=== PATIENT | female | born 1945 | race Caucasian/White ===

== ENCOUNTER 2019-03-19 13:52 | Emergency (ER) | payer MEDICARE, OTHER ==
[~2019-03-19] VITALS: Ht 162.6 cm; Wt 70.8 kg
[~2019-03-19 13:52] MED LIST: ACET325T53 PO; ALBUT2 NEB; ALLA266C2 TP; ASPI-1152 PO; ATOR40TA PO; Blood Sugar Diagnostic IN; GUAI5SYR PO; INSU100I19 SQ; INSU100V SQ; Ipratropium Bromide NEB; LEVO750T21 PO; NICO1PAT25 TD; PRED10TA PO; PRED20TA GT; PRED50TA PO
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
[2019-03-19] MEDS ORDERED: MORPHINE SULFATE INJ 4 MG/ML DISP.SYRIN ONE (14:47)
[2019-03-19] MEDS ORDERED: ONDANSETRON HCL/PF 4 MG/2 ML VIAL ONE (14:47)
[2019-03-19] MEDS ORDERED: KETOROLAC TROMETHAMINE 15 MG/ML VIAL ONE (14:47)
[2019-03-19] MEDS ORDERED: IV NS 0.9% 500 ML BAG IV ONE (15:00)
[2019-03-19] MEDS ORDERED: KETOROLAC TROMETHAMINE INJ 30 MG/ML VIAL IV ONE (15:00)
[2019-03-19] MEDS ORDERED: MORPHINE SULFATE INJ 2 MG/ML DISP.SYRIN IV ONE (15:00)
[2019-03-19] MEDS ORDERED: ONDANSETRON HCL/PF 4 MG/2 ML VIAL IVP ONE (15:00)
[2019-03-19] MEDS ORDERED: CLOP75TA15 PO (15:05)
[2019-03-19] MEDS ORDERED: CALC500T51 PO (15:05)
[2019-03-19] MEDS ORDERED: MELO-105 PO (15:05)
[2019-03-19] MEDS ORDERED: FLUT1DIS3 IH (15:05)
[2019-03-19] MEDS ORDERED: MEMA21CA2 PO (15:05)
[2019-03-19] MEDS ORDERED: QUET200T5 PO (15:05)
[2019-03-19] MEDS ORDERED: CITA20TA16 PO (15:05)
[2019-03-19] MEDS ORDERED: AMLO1CAP93 PO (15:05)
[2019-03-19] MEDS ORDERED: ASPI-605 PO (15:05)
[2019-03-19] MEDS ORDERED: EXEN2AUT SQ (15:05)
[2019-03-19] MEDS ORDERED: LINA290C PO (15:05)
[2019-03-19] MEDS ORDERED: TOLT4CAP14 PO (15:05)
[2019-03-19] MEDS ORDERED: LANS30CA62 GT (15:05)
[2019-03-19 15:06] LABS: BASOPHILS # (AUTO) 0.1 /CMM (0.0-0.2); BASOPHILS % (AUTO) 0.9 % (0.0-2.0); EOSINOPHILS % (AUTO) 1.5 % (0.0-6.0); HEMATOCRIT 40 % (33-45); HEMOGLOBIN 13.5 g/dL (11.5-14.8); LYMPHOCYTES # (AUTO) 2.6 /CMM (0.8-4.8); LYMPHOCYTES % (AUTO) 25.4 % (20.0-44.0); MEAN CORPUSCULAR HGB CONC 33 g/dl (31.0-36.0); MEAN CORPUSCULAR VOLUME 88 fL (82-100); MONOCYTES # (AUTO) 0.6 /CMM (0.1-1.30); MONOCYTES % (AUTO) 5.9 % (2.0-12.0); NEUTROPHILS # (AUTO) 6.7 /CMM (1.8-8.9); NEUTROPHILS % (AUTO) 66.3 % (43.0-81.0); PLATELET COUNT (AUTO) 268 /CMM (150-450); RED BLOOD CELL COUNT(AUTO) 4.58 MIL/uL (4.0-5.2); WHITE BLOOD COUNT (AUTO) 10.1 K/uL (4.3-11.0)
[2019-03-19 15:15] LABS: CALCIUM, SERUM 9.2 mg/dL (8.5-10.1); CARBON DIOXIDE 26 mmol/L (21-32); CHLORIDE 105 mmol/L (98-107); CREATININE 1.4 mg/dL (0.6-1.3); GLUCOSE 113 mg/dL (74-106); SODIUM SERUM 141 mmol/L (136-145); UREA NITROGEN, BLOOD 34 mg/dL (7-18)
--- NOTE | 2019-03-19 15:15 | NUR ---
IV ACCESS ESTABLISHED, MEDS GIVEN, IVF INFUSING. BLOOD DRAWN AND CHART WRITER AT BEDSIDE.
--- NOTE | 2019-03-19 15:55 | NUR ---
TOOL CARRIER AT BEDSIDE
[2019-03-19] MEDS ORDERED: ONDANSETRON 4 MG TAB.RAPDIS ONE (16:59)
[2019-03-19] MEDS ORDERED: HYDROCODONE/APAP 5/325MG 1 EACH TABLET ONE (16:59)
[2019-03-19] MEDS ORDERED: HYDROCODONE/APAP 5/325MG 1 EACH TABLET PO ONE (17:00)
[2019-03-19] MEDS ORDERED: ONDANSETRON 4 MG TAB.RAPDIS SL ONE (17:00)
--- NOTE | 2019-03-19 17:08 | NUR ---
IV removed. Catheter intact and site benign. Pressure and 4x4 applied to site. No bleeding noted. Patient discharged to home in stable condition. Written and verbal after care instructions given. Patient verbalizes understanding of instruction.
[2019-03-19 17:11] VITALS: BP 143/88
== END 2019-03-19 15:10 | disposition home or self-care (01) ==
LOC: ER 13:53
DX: M79.10 Myalgia, unspecified site (principal); M25.461 Effusion, right knee; I10 Essential (primary) hypertension; E11.9 Type 2 diabetes mellitus without complications; Z79.4 Long term (current) use of insulin; Z79.82 Long term (current) use of aspirin; Z79.899 Other long term (current) drug therapy
CPT/HCPCS: 36415; 73562; 80048; 85025; 85652; 86140; 93971; 96374; 96375; 99284; J1885; J2270; J2405; J7040; Q0162

== ENCOUNTER 2023-11-08 15:05 | Inpatient (IN) | payer MEDICARE, OTHER ==
[~2023-11-08] VITALS: Ht 162.6 cm; Wt 65.3 kg
[~2023-11-08 15:05] MED LIST changes: -ACET325T53 PO; -ALBUT2 NEB; -ALLA266C2 TP; +AMLO1CAP93 PO; -ASPI-1152 PO; +ASPI-605 PO; -ATOR40TA PO; -Blood Sugar Diagnostic IN; +CALC500T53 PO; +CITA20TA16 PO; +CLOP75TA15 PO; +EXEN2AUT SQ; +FLUT1DIS3 IH; -GUAI5SYR PO; -INSU100V SQ; -Ipratropium Bromide NEB; +LANS30CA62 GT; -LEVO750T21 PO; +LINA290C PO; +MELO-105 PO; +MEMA21CA2 PO; -NICO1PAT25 TD; -PRED10TA PO; -PRED20TA GT; -PRED50TA PO; +QUET200T5 PO; +TOLT4CAP14 PO
[2023-11-08] MEDS ORDERED: IV NS 0.9% 1,000 ML BAG IV ONE (15:30)
[2023-11-08] MEDS ORDERED: ONDANSETRON HCL/PF 4 MG/2 ML VIAL IVP ONE (15:30)
[2023-11-08] MEDS ORDERED: MORPHINE SULFATE INJ 2 MG/ML DISP.SYRIN IV ONE (15:30)
[2023-11-08] MEDS ORDERED: ONDANSETRON HCL/PF 4 MG/2 ML VIAL ONE (15:38)
[2023-11-08] MEDS ORDERED: MORPHINE SULFATE INJ 4 MG/ML DISP.SYRIN ONE (15:39)
[2023-11-08 15:50] LABS: BASOPHILS # (AUTO) 0.1 K/uL (0.0-0.2); BASOPHILS % (AUTO) 0.8 % (0.0-2.0); EOSINOPHILS # (AUTO) 0.2 K/uL (0.0-0.7); EOSINOPHILS % (AUTO) 1.9 % (0.0-6.0); HEMATOCRIT 39 % (33-45); HEMOGLOBIN 12.7 g/dL (11.5-14.8); LYMPHOCYTES # (AUTO) 1.7 K/uL (0.8-4.8); LYMPHOCYTES % (AUTO) 18.6 % (20.0-44.0); MEAN CORPUSCULAR HEMOGLOBIN 29 PG (26.0-33.0); MEAN CORPUSCULAR HGB CONC 32 g/dl (31.0-36.0); MEAN CORPUSCULAR VOLUME 89 fL (82-100); MONOCYTES # (AUTO) 0.4 K/uL (0.1-1.30); NEUTROPHILS # (AUTO) 6.6 K/uL (1.8-8.9); NEUTROPHILS % (AUTO) 73.7 % (43.0-81.0); PLATELET COUNT (AUTO) 259 K/uL (150-450); RED BLOOD CELL COUNT(AUTO) 4.39 MIL/uL (4.0-5.2); RED CELL DISTRIBUTION WIDTH 15.5 % (11.5-15.0); WHITE BLOOD COUNT (AUTO) 8.9 K/uL (4.3-11.0)
[2023-11-08 16:02] LABS: CALCIUM, SERUM 9.2 mg/dL (8.5-10.1); CARBON DIOXIDE 26 mmol/L (21-32); CHLORIDE 107 mmol/L (98-107); CREATININE 1.5 mg/dL (0.6-1.3); GLUCOSE 169 mg/dL (74-106); POTASSIUM 4.6 mmol/L (3.5-5.1); SODIUM SERUM 139 mmol/L (136-145); UREA NITROGEN, BLOOD 28 mg/dL (7-18)
[2023-11-08 16:03] LABS: INR 1.02 (0.91-1.10); PARTIAL THROMBOPLASTIN TIME 25.6 SEC (24.3-34.3); PROTHROMBIN TIME 10.8 SECS (9.2-11.1)
[2023-11-08] MEDS ORDERED: ERGO500093 PO (16:17)
[2023-11-08] MEDS ORDERED: EVOL140P3 SQ (16:17)
[2023-11-08] MEDS ORDERED: PREG-58 PO (16:17)
[2023-11-08] MEDS ORDERED: EXEN2AUT SQ (16:17)
[2023-11-08] MEDS ORDERED: LINA72CA PO (16:17)
[2023-11-08] MEDS ORDERED: TOLT4CAP14 PO (16:17)
[2023-11-08] MEDS ORDERED: AMLO-62 PO (16:17)
[2023-11-08] MEDS ORDERED: CLOP75TA15 PO (16:17)
[2023-11-08] MEDS ORDERED: CALC500T52 PO (16:17)
[2023-11-08] MEDS ORDERED: ASPI-605 PO (16:17)
[2023-11-08] MEDS ORDERED: HYDR100T27 PO (16:17)
[2023-11-08] MEDS ORDERED: MEMA21CA2 PO (16:17)
[2023-11-08] MEDS ORDERED: FAMO40TA7 PO (16:17)
[2023-11-08] MEDS ORDERED: TRAM50TA2 PO (16:17)
[2023-11-08] MEDS ORDERED: METO-357 PO (16:17)
[2023-11-08] MEDS ORDERED: OMEP40CA21 PO (16:17)
[2023-11-08] MEDS ORDERED: HYDR25TA4 PO (16:17)
[2023-11-08] MEDS ORDERED: FLUT1BLS6 INH (16:17)
[2023-11-08] MEDS ORDERED: CITA20TA16 PO (16:17)
[2023-11-08] MEDS ORDERED: MAGN400T26 PO (16:17)
[2023-11-08] MEDS ORDERED: HYDROMORPHONE 1 MG/1 ML DISP.SYRIN IV ONE (16:30)
[2023-11-08] MEDS ORDERED: HYDROMORPHONE 1 MG/1 ML DISP.SYRIN ONE (16:36)
[2023-11-08] MEDS ORDERED: ONDANSETRON HCL/PF 4 MG/2 ML VIAL IVP PRN (18:30)
[2023-11-08] MEDS ORDERED: Z GUARD REMEDY 4 OZ OINT TP PRN (18:30)
[2023-11-08] MEDS ORDERED: ACETAMINOPHEN 325 MG TABLET PO PRN (18:30)
[2023-11-08] MEDS ORDERED: DEXTROSE 50%-WATER 50 ML DISP.SYRIN IV PRN (18:30)
[2023-11-08] MEDS ORDERED: ERGOCALCIFEROL (VITAMIN D 2) 50,000 UNIT CAPSULE PO SCH (19:00)
[2023-11-08 21:00] VITALS: BP 116/81; TEMP 98.4; O2SAT 96
[2023-11-08 21:15] VITALS: BP 116/81; TEMP 98.4; O2SAT 96
[2023-11-08] MEDS: BLOOD SUGAR DIAGNOSTIC 1 EACH STRIP IN SCH (22:00)
[2023-11-08] MEDS: INSULIN REGULAR, HUMAN 100 UNIT/ML 3 ML VIAL SQ PRN (22:01)
[2023-11-08] MEDS: NICOTINE PATCH (21MG) 21 MG PATCH.TD24 TD SCH (22:31)
[2023-11-08] MEDS: MORPHINE SULFATE INJ 2 MG/ML DISP.SYRIN IV PRN (22:31)
[2023-11-09] MEDS: MORPHINE SULFATE INJ 2 MG/ML DISP.SYRIN IV PRN ×4 (04:32→21:52)
[2023-11-09] MEDS: BLOOD SUGAR DIAGNOSTIC 1 EACH STRIP IN SCH ×4 (06:33→22:27)
[2023-11-09] MEDS: INSULIN REGULAR, HUMAN 100 UNIT/ML 3 ML VIAL SQ PRN (06:34)
[2023-11-09 07:09] LABS: BASOPHILS # (AUTO) 0.1 K/uL (0.0-0.2); BASOPHILS % (AUTO) 0.6 % (0.0-2.0); EOSINOPHILS # (AUTO) 0.1 K/uL (0.0-0.7); EOSINOPHILS % (AUTO) 1.7 % (0.0-6.0); HEMATOCRIT 32 % (33-45); HEMOGLOBIN 10.7 g/dL (11.5-14.8); LYMPHOCYTES # (AUTO) 2.1 K/uL (0.8-4.8); LYMPHOCYTES % (AUTO) 24.4 % (20.0-44.0); MEAN CORPUSCULAR HEMOGLOBIN 29 PG (26.0-33.0); MEAN CORPUSCULAR HGB CONC 33 g/dl (31.0-36.0); MEAN CORPUSCULAR VOLUME 89 fL (82-100); MONOCYTES # (AUTO) 0.7 K/uL (0.1-1.30); MONOCYTES % (AUTO) 8.7 % (2.0-12.0); NEUTROPHILS # (AUTO) 5.4 K/uL (1.8-8.9); NEUTROPHILS % (AUTO) 64.6 % (43.0-81.0); PLATELET COUNT (AUTO) 202 K/uL (150-450); RED BLOOD CELL COUNT(AUTO) 3.64 MIL/uL (4.0-5.2); RED CELL DISTRIBUTION WIDTH 15.1 % (11.5-15.0); WHITE BLOOD COUNT (AUTO) 8.4 K/uL (4.3-11.0)
[2023-11-09 07:39] LABS: CALCIUM, SERUM 8.6 mg/dL (8.5-10.1); CARBON DIOXIDE 23 mmol/L (21-32); CHLORIDE 109 mmol/L (98-107); CREATININE 1.4 mg/dL (0.6-1.3); GLUCOSE 117 mg/dL (74-106); MAGNESIUM 1.7 mg/dL (1.8-2.4); POTASSIUM 4.3 mmol/L (3.5-5.1); SODIUM SERUM 141 mmol/L (136-145); UREA NITROGEN, BLOOD 24 mg/dL (7-18)
[2023-11-09 07:46] LABS: CHOLESTEROL 105 mg/dL (<200); HDL CHOLESTEROL 41 mg/dL (40-60); LDL 40 mg/dL (0-99); TRIGLYCERIDES 198 mg/dL (30-150)
[2023-11-09 08:33] VITALS: BP 125/53; TEMP 99.1; O2SAT 96
[2023-11-09] MEDS: METOPROLOL SUCCINATE 50 MG TAB.SR.24H PO SCH (09:00)
[2023-11-09] MEDS: PREGABALIN 25 MG CAPSULE PO SCH ×2 (09:56→17:21)
[2023-11-09] MEDS: NICOTINE PATCH (21MG) 21 MG PATCH.TD24 TD SCH (09:57)
[2023-11-09] MEDS: PANTOPRAZOLE 40 MG TABLET.DR PO SCH (09:57)
[2023-11-09] MEDS: CITALOPRAM HYDROBROMIDE 20 MG TABLET PO SCH (09:57)
[2023-11-09] MEDS: IV NS 0.9% 1,000 ML IV SCH ×2 (09:59→18:22)
[2023-11-09 10:00] LABS: THYROID STIMULATING HORMONE 1.487 uIU/mL (0.358-3.74)
[2023-11-09] MEDS ORDERED: MAGNESIUM OXIDE 400 MG TABLET PO ONE (11:00)
[2023-11-09 16:12] VITALS: BP 121/54; TEMP 99.1; O2SAT 89
[2023-11-09] MEDS: MEMANTINE HCL 5 MG TABLET PO SCH (17:21)
[2023-11-09 20:00] VITALS: BP 146/52; TEMP 98.6; O2SAT 97
[2023-11-09] MEDS: IPRATROPIUM NEB FS 0.5 MG/2.5 ML AMPUL.NEB NEB SCH (20:27)
[2023-11-09] MEDS: ALBUTEROL FS 2.5 MG/0.5 ML VIAL.NEB NEB SCH (20:27)
[2023-11-09 20:28] VITALS: O2SAT 86
[2023-11-09] MEDS: BUDESONIDE RESPULE INH 0.5 MG/2 ML AMPUL.NEB IH SCH (20:28)
[2023-11-09 20:43] VITALS: O2SAT 97
[2023-11-10] VITALS (11 sets, daily range): BP systolic 125–142; BP diastolic 56–61; TEMP 97.9–99; O2SAT 94–99
[2023-11-10] MEDS: IPRATROPIUM NEB FS 0.5 MG/2.5 ML AMPUL.NEB NEB SCH ×4 (02:09→20:19)
[2023-11-10] MEDS: ALBUTEROL FS 2.5 MG/0.5 ML VIAL.NEB NEB SCH ×4 (02:09→20:19)
[2023-11-10] MEDS: MORPHINE SULFATE INJ 2 MG/ML DISP.SYRIN IV PRN ×3 (04:30→19:48)
[2023-11-10 06:51] LABS: HEMOGLOBIN 9.9 g/dL (11.5-14.8); MEAN CORPUSCULAR HEMOGLOBIN 29 PG (26.0-33.0)
[2023-11-10] MEDS: BLOOD SUGAR DIAGNOSTIC 1 EACH STRIP IN SCH ×4 (06:53→22:16)
[2023-11-10 07:01] LABS: BASOPHILS % (AUTO) 0.4 % (0.0-2.0); EOSINOPHILS # (AUTO) 0.1 K/uL (0.0-0.7); EOSINOPHILS % (AUTO) 1.5 % (0.0-6.0); HEMATOCRIT 30 % (33-45); LYMPHOCYTES # (AUTO) 1.6 K/uL (0.8-4.8); LYMPHOCYTES % (AUTO) 16.3 % (20.0-44.0); MEAN CORPUSCULAR HGB CONC 33 g/dl (31.0-36.0); MEAN CORPUSCULAR VOLUME 89 fL (82-100); MONOCYTES # (AUTO) 0.9 K/uL (0.1-1.30); MONOCYTES % (AUTO) 8.8 % (2.0-12.0); PLATELET COUNT (AUTO) 163 K/uL (150-450); RED BLOOD CELL COUNT(AUTO) 3.37 MIL/uL (4.0-5.2); WHITE BLOOD COUNT (AUTO) 9.7 K/uL (4.3-11.0)
[2023-11-10 07:05] LABS: ALANINE AMINOTRANSFERASE 39 U/L (12-78); ALBUMIN 2.7 g/dL (3.4-5.0); ALKALINE PHOSPHATASE 96 U/L (46-116); ASPARTATE AMINOTRANSFERASE 16 U/L (15-37); BILIRUBIN,TOTAL 0.2 mg/dL (0.2-1.0); CALCIUM, SERUM 8.3 mg/dL (8.5-10.1); CARBON DIOXIDE 24 mmol/L (21-32); CHLORIDE 108 mmol/L (98-107); CREATININE 1.4 mg/dL (0.6-1.3); GLUCOSE 147 mg/dL (74-106); MAGNESIUM 1.7 mg/dL (1.8-2.4); PHOSPHORUS 4.4 mg/dL (2.5-4.9); POTASSIUM 4.2 mmol/L (3.5-5.1); SODIUM SERUM 139 mmol/L (136-145); TOTAL PROTEIN, SERUM 6.2 g/dL (6.4-8.2); UREA NITROGEN, BLOOD 20 mg/dL (7-18)
[2023-11-10 07:07] LABS: CREATINE KINASE, TOTAL 39 U/L (26-192)
[2023-11-10] MEDS: PANTOPRAZOLE 40 MG TABLET.DR PO SCH (07:30)
[2023-11-10] MEDS: BUDESONIDE RESPULE INH 0.5 MG/2 ML AMPUL.NEB IH SCH ×2 (07:44→20:19)
[2023-11-10] MEDS: METOPROLOL SUCCINATE 50 MG TAB.SR.24H PO SCH (09:00)
[2023-11-10] MEDS: CITALOPRAM HYDROBROMIDE 20 MG TABLET PO SCH (09:00)
[2023-11-10] MEDS: PREGABALIN 25 MG CAPSULE PO SCH ×2 (09:00→16:14)
[2023-11-10] MEDS: MEMANTINE HCL 5 MG TABLET PO SCH ×2 (09:00→16:14)
[2023-11-10] MEDS: NICOTINE PATCH (21MG) 21 MG PATCH.TD24 TD SCH (09:42)
[2023-11-10] MEDS ORDERED: Magnesium 1GM/D5W 100ML PREMIX 100 ML IV SCH (10:00)
[2023-11-10] MEDS ORDERED: POLYMYXIN B SULFATE 500,000 UNITS ONE ×2 (10:27→10:28)
[2023-11-10] MEDS ORDERED: BUPIVACAINE 0.25% 75 MG/30 ML VIAL ONE (10:27)
[2023-11-10] MEDS ORDERED: ANESTHESIA TRAY IN PYXIS 1 EA TRAY MC ONE (10:27)
[2023-11-10] MEDS ORDERED: BUPIVACAINE 0.5 % PF 150 MG/30 ML VIAL ONE (10:27)
[2023-11-10] MEDS ORDERED: LABETALOL HCL IV 100MG VIAL ONE (10:51)
[2023-11-10] MEDS ORDERED: FENTANYL PF 100MCG/2ML AMPUL ONE (10:51)
[2023-11-10] MEDS ORDERED: MIDAZOLAM HCL 2 MG/2ML VIAL ONE (10:51)
[2023-11-10] MEDS ORDERED: ROCURONIUM BROMIDE 50 MG/5 ML ONE (10:52)
[2023-11-10] MEDS: IV NS 0.9% 1,000 ML IV PRN (16:14)
[2023-11-10] MEDS: INSULIN REGULAR, HUMAN 100 UNIT/ML 3 ML VIAL SQ PRN ×2 (17:13→22:15)
[2023-11-10] MEDS ORDERED: ANCEF 1 GM/50 ML D5W IV SCH ×2 (21:00)
[2023-11-10] MEDS: CEFAZOLIN 2 GM in IV D5W 100 ML IV SCH (21:07)
[2023-11-11] VITALS (11 sets, daily range): BP systolic 147–161; BP diastolic 62–69; TEMP 97.8–98.7; O2SAT 95–99
[2023-11-11] MEDS: MORPHINE SULFATE INJ 2 MG/ML DISP.SYRIN IV PRN ×3 (00:08→20:23)
[2023-11-11] MEDS: ALBUTEROL FS 2.5 MG/0.5 ML VIAL.NEB NEB SCH ×4 (02:12→20:19)
[2023-11-11] MEDS: IPRATROPIUM NEB FS 0.5 MG/2.5 ML AMPUL.NEB NEB SCH ×4 (02:12→20:19)
[2023-11-11] MEDS: IV NS 0.9% 1,000 ML IV PRN ×2 (03:19→14:37)
[2023-11-11] MEDS: CEFAZOLIN 2 GM in IV D5W 100 ML IV SCH (05:18)
[2023-11-11] MEDS: BLOOD SUGAR DIAGNOSTIC 1 EACH STRIP IN SCH ×4 (06:33→20:47)
[2023-11-11] MEDS: INSULIN REGULAR, HUMAN 100 UNIT/ML 3 ML VIAL SQ PRN (06:34)
[2023-11-11 07:21] LABS: PTH, INTACT 37 pg/mL (15-65)
[2023-11-11 07:26] LABS: BASOPHILS % (AUTO) 0.3 % (0.0-2.0); HEMATOCRIT 26 % (33-45); HEMOGLOBIN 8.7 g/dL (11.5-14.8); LYMPHOCYTES # (AUTO) 1.6 K/uL (0.8-4.8); LYMPHOCYTES % (AUTO) 14.3 % (20.0-44.0); MEAN CORPUSCULAR HEMOGLOBIN 30 PG (26.0-33.0); MEAN CORPUSCULAR HGB CONC 33 g/dl (31.0-36.0); MEAN CORPUSCULAR VOLUME 89 fL (82-100); MONOCYTES # (AUTO) 1.1 K/uL (0.1-1.30); MONOCYTES % (AUTO) 9.8 % (2.0-12.0); NEUTROPHILS # (AUTO) 8.3 K/uL (1.8-8.9); NEUTROPHILS % (AUTO) 75.6 % (43.0-81.0); PLATELET COUNT (AUTO) 154 K/uL (150-450); RED BLOOD CELL COUNT(AUTO) 2.95 MIL/uL (4.0-5.2); RED CELL DISTRIBUTION WIDTH 14.5 % (11.5-15.0)
[2023-11-11] MEDS: BUDESONIDE RESPULE INH 0.5 MG/2 ML AMPUL.NEB IH SCH ×2 (07:33→20:19)
[2023-11-11 07:58] LABS: ALBUMIN 2.4 g/dL (3.4-5.0); BILIRUBIN,TOTAL 0.1 mg/dL (0.2-1.0); CALCIUM, SERUM 8.4 mg/dL (8.5-10.1); CREATININE 1.2 mg/dL (0.6-1.3); PHOSPHORUS 3.7 mg/dL (2.5-4.9); TOTAL PROTEIN, SERUM 5.9 g/dL (6.4-8.2)
[2023-11-11] MEDS: METOPROLOL SUCCINATE 50 MG TAB.SR.24H PO SCH (08:31)
[2023-11-11] MEDS: NICOTINE PATCH (21MG) 21 MG PATCH.TD24 TD SCH (08:31)
[2023-11-11] MEDS: CITALOPRAM HYDROBROMIDE 20 MG TABLET PO SCH (08:31)
[2023-11-11] MEDS: PREGABALIN 25 MG CAPSULE PO SCH ×2 (08:31→16:52)
[2023-11-11] MEDS: PANTOPRAZOLE 40 MG TABLET.DR PO SCH (08:31)
[2023-11-11] MEDS: MEMANTINE HCL 5 MG TABLET PO SCH ×2 (08:31→16:52)
[2023-11-11] MEDS: SOD FERRIC GLUC 125 MG in IV NS 0.9% 100 ML IV SCH (14:37)
[2023-11-12] VITALS (11 sets, daily range): BP systolic 140–149; BP diastolic 54–66; TEMP 98.7–99.1; O2SAT 90–99
[2023-11-12] MEDS: IV NS 0.9% 1,000 ML IV PRN ×2 (01:45→20:27)
[2023-11-12] MEDS: IPRATROPIUM NEB FS 0.5 MG/2.5 ML AMPUL.NEB NEB SCH ×4 (01:55→20:06)
[2023-11-12] MEDS: ALBUTEROL FS 2.5 MG/0.5 ML VIAL.NEB NEB SCH ×4 (01:55→20:06)
[2023-11-12] MEDS: INSULIN REGULAR, HUMAN 100 UNIT/ML 3 ML VIAL SQ PRN ×3 (06:33→22:42)
[2023-11-12] MEDS: BLOOD SUGAR DIAGNOSTIC 1 EACH STRIP IN SCH ×4 (06:33→22:42)
[2023-11-12 07:25] LABS: BASOPHILS # (AUTO) 0.1 K/uL (0.0-0.2); BASOPHILS % (AUTO) 0.6 % (0.0-2.0); EOSINOPHILS # (AUTO) 0.1 K/uL (0.0-0.7); EOSINOPHILS % (AUTO) 1.3 % (0.0-6.0); HEMATOCRIT 28 % (33-45); HEMOGLOBIN 9.2 g/dL (11.5-14.8); LYMPHOCYTES # (AUTO) 1.5 K/uL (0.8-4.8); LYMPHOCYTES % (AUTO) 13.1 % (20.0-44.0); MEAN CORPUSCULAR HEMOGLOBIN 30 PG (26.0-33.0); MEAN CORPUSCULAR HGB CONC 33 g/dl (31.0-36.0); MEAN CORPUSCULAR VOLUME 89 fL (82-100); MONOCYTES # (AUTO) 1.1 K/uL (0.1-1.30); MONOCYTES % (AUTO) 9.5 % (2.0-12.0); NEUTROPHILS # (AUTO) 8.5 K/uL (1.8-8.9); NEUTROPHILS % (AUTO) 75.5 % (43.0-81.0); PLATELET COUNT (AUTO) 164 K/uL (150-450); RED CELL DISTRIBUTION WIDTH 14.7 % (11.5-15.0); WHITE BLOOD COUNT (AUTO) 11.2 K/uL (4.3-11.0)
[2023-11-12] MEDS: BUDESONIDE RESPULE INH 0.5 MG/2 ML AMPUL.NEB IH SCH ×2 (07:42→20:07)
[2023-11-12 08:03] LABS: CALCIUM, SERUM 8.6 mg/dL (8.5-10.1); CREATININE 1.1 mg/dL (0.6-1.3); MAGNESIUM 1.7 mg/dL (1.8-2.4); PHOSPHORUS 3.1 mg/dL (2.5-4.9); POTASSIUM 3.8 mmol/L (3.5-5.1)
[2023-11-12] MEDS: METOPROLOL SUCCINATE 50 MG TAB.SR.24H PO SCH (10:00)
[2023-11-12] MEDS: PANTOPRAZOLE 40 MG TABLET.DR PO SCH (10:00)
[2023-11-12] MEDS: PREGABALIN 25 MG CAPSULE PO SCH ×2 (10:00→16:21)
[2023-11-12] MEDS ORDERED: MAGNESIUM OXIDE 400 MG TABLET PO ONE (10:00)
[2023-11-12] MEDS: NICOTINE PATCH (21MG) 21 MG PATCH.TD24 TD SCH (10:01)
[2023-11-12] MEDS: CITALOPRAM HYDROBROMIDE 20 MG TABLET PO SCH (10:01)
[2023-11-12] MEDS: MEMANTINE HCL 5 MG TABLET PO SCH ×2 (10:01→16:21)
[2023-11-12] MEDS: ENOXAPARIN SODIUM 30 MG/0.3 ML DISP.SYRIN SQ SCH (10:14)
[2023-11-12] MEDS: SOD FERRIC GLUC 125 MG in IV NS 0.9% 100 ML IV SCH (13:46)
[2023-11-13] VITALS (8 sets, daily range): BP systolic 160; BP diastolic 61; TEMP 98.2; O2SAT 93–99
[2023-11-13] MEDS: ALBUTEROL FS 2.5 MG/0.5 ML VIAL.NEB NEB SCH ×3 (02:08→12:46)
[2023-11-13] MEDS: IPRATROPIUM NEB FS 0.5 MG/2.5 ML AMPUL.NEB NEB SCH ×3 (02:08→12:46)
[2023-11-13] MEDS: IV NS 0.9% 1,000 ML IV PRN (06:07)
[2023-11-13] MEDS: PANTOPRAZOLE 40 MG TABLET.DR PO SCH (07:17)
[2023-11-13] MEDS: BLOOD SUGAR DIAGNOSTIC 1 EACH STRIP IN SCH ×2 (07:17→11:09)
[2023-11-13] MEDS: BUDESONIDE RESPULE INH 0.5 MG/2 ML AMPUL.NEB IH SCH (07:32)
[2023-11-13 07:44] LABS: CALCIUM, SERUM 8.6 mg/dL (8.5-10.1); CHLORIDE 103 mmol/L (98-107); CREATININE 1.1 mg/dL (0.6-1.3); GLUCOSE 131 mg/dL (74-106); MAGNESIUM 1.7 mg/dL (1.8-2.4); POTASSIUM 3.5 mmol/L (3.5-5.1); SODIUM SERUM 139 mmol/L (136-145); UREA NITROGEN, BLOOD 18 mg/dL (7-18)
[2023-11-13 08:03] LABS: CARBON DIOXIDE 25 mmol/L (21-32)
[2023-11-13] MEDS: NICOTINE PATCH (21MG) 21 MG PATCH.TD24 TD SCH (08:11)
[2023-11-13] MEDS: PREGABALIN 25 MG CAPSULE PO SCH (08:12)
[2023-11-13] MEDS: CITALOPRAM HYDROBROMIDE 20 MG TABLET PO SCH (08:12)
[2023-11-13] MEDS: METOPROLOL SUCCINATE 50 MG TAB.SR.24H PO SCH (08:12)
[2023-11-13] MEDS: MEMANTINE HCL 5 MG TABLET PO SCH (08:12)
[2023-11-13 09:08] LABS: *SPE A/G RATIO 0.9 (0.7-1.7); *SPE ALBUMIN 2.6 g/dL (2.9-4.4); *SPE ALPHA-1-GLOBULIN 0.3 g/dL (0.0-0.4); *SPE ALPHA-2-GLOBULIN 0.9 g/dL (0.4-1.0); *SPE BETA GLOBULIN 0.8 g/dL (0.7-1.3); *SPE GLOBULIN, TOTAL 2.8 g/dL (2.2-3.9); *SPE M-SPIKE Not Observed g/dL (Not Observed); *SPE PROTEIN TOTAL 5.4 g/dL (6.0-8.5); *SPEGAMMA GLOBULIN 0.8 g/dL (0.4-1.8)
[2023-11-13] MEDS: ENOXAPARIN SODIUM 30 MG/0.3 ML DISP.SYRIN SQ SCH (09:12)
[2023-11-13] MEDS: Magnesium 1GM/D5W 100ML PREMIX 100 ML IV SCH ×2 (09:31→10:35)
[2023-11-13] MEDS ORDERED: MAGNESIUM OXIDE 400 MG TABLET PO ONE (10:00)
[2023-11-13] MEDS: INSULIN REGULAR, HUMAN 100 UNIT/ML 3 ML VIAL SQ PRN (11:18)
[2023-11-13] MEDS: SOD FERRIC GLUC 125 MG in IV NS 0.9% 100 ML IV SCH (14:00)
== END 2023-11-13 16:45 | DRG 481 ==
LOC: ER 15:44 → MED 20:35
PROVIDERS: ADMIT Nurse Practitioner Family; ATTEND Nurse Practitioner Family
PROC: 0QS706Z Reposition Left Upper Femur with Intramedullary Internal Fixation Device, Open Approach (ICD-10-PCS; principal; 2023-11-10)
DX: S72.142A Displaced intertrochanteric fracture of left femur, initial encounter for closed fracture (principal); N17.9 Acute kidney failure, unspecified; I25.10 Atherosclerotic heart disease of native coronary artery without angina pectoris; D64.9 Anemia, unspecified; E78.5 Hyperlipidemia, unspecified; E83.42 Hypomagnesemia; Z88.0 Allergy status to penicillin; E11.22 Type 2 diabetes mellitus with diabetic chronic kidney disease; Z95.5 Presence of coronary angioplasty implant and graft; K21.9 Gastro-esophageal reflux disease without esophagitis; I12.9 Hypertensive chronic kidney disease with stage 1 through stage 4 chronic kidney disease, or unspecified chronic kidney disease; N18.9 Chronic kidney disease, unspecified; M89.8X9 Other specified disorders of bone, unspecified site; W01.0XXA Fall on same level from slipping, tripping and stumbling without subsequent striking against object, initial encounter; Y93.9 Activity, unspecified; Y92.009 Unspecified place in unspecified non-institutional (private) residence as the place of occurrence of the external cause; F17.210 Nicotine dependence, cigarettes, uncomplicated; Z71.6 Tobacco abuse counseling; F32.A Depression, unspecified; Z79.82 Long term (current) use of aspirin
CPT/HCPCS: 36415; 71045-TC; 73502; 76770-TC; 80048-TC; 80053-TC; 80061-TC; 82550-TC; 82728-TC; 82962-TC; 83540-TC; 83735-TC; 83970; 84100-TC; 84155; 84165; 84439-TC; 84443-TC; 85025-TC; 85730-TC; 86850-TC; 93307-TC; 94799-TC; 97110-TC; 97112-TC; 97530-TC; A4223; A6209; C1713; G0378; J0330; J0690; J1100; J1170; J1650; J1815; J2250; J2270; J2405; J2704; J2916; J3010; J3475; J3490; J7030; J7060

== ENCOUNTER 2024-01-04 12:15 | Inpatient (IN) | payer MEDICARE, OTHER ==
[~2024-01-04] VITALS: Ht 162.6 cm; Wt 60.8 kg
[~2024-01-04 12:15] MED LIST changes: +AMLO-62 PO; -AMLO1CAP93 PO; +CALC500T52 PO; -CALC500T53 PO; +ERGO500093 PO; +EVOL140P3 SQ; +FAMO40TA7 PO; +FLUT1BLS6 INH; -FLUT1DIS3 IH; +HYDR100T27 PO; +HYDR25TA4 PO; -INSU100I19 SQ; -LANS30CA62 GT; -LINA290C PO; +LINA72CA PO; +MAGN400T26 PO; -MELO-105 PO; +METO-357 PO; +OMEP40CA21 PO; +PREG-58 PO; -QUET200T5 PO; +TRAM50TA2 PO
[2024-01-04] MEDS ORDERED: methylPREDNISolone SOD SUCC 125 MG/2ML VIAL ONE (13:01)
[2024-01-04 13:02] LABS: BASOPHILS # (AUTO) 0.1 K/uL (0.0-0.2); BASOPHILS % (AUTO) 0.8 % (0.0-2.0); EOSINOPHILS # (AUTO) 0.1 K/uL (0.0-0.7); EOSINOPHILS % (AUTO) 1.2 % (0.0-6.0); HEMATOCRIT 33 % (33-45); HEMOGLOBIN 10.7 g/dL (11.5-14.8); LYMPHOCYTES # (AUTO) 1.6 K/uL (0.8-4.8); LYMPHOCYTES % (AUTO) 19.6 % (20.0-44.0); MEAN CORPUSCULAR HEMOGLOBIN 30 PG (26.0-33.0); MEAN CORPUSCULAR HGB CONC 32 g/dl (31.0-36.0); MEAN CORPUSCULAR VOLUME 92 fL (82-100); MONOCYTES # (AUTO) 0.6 K/uL (0.1-1.30); MONOCYTES % (AUTO) 8.1 % (2.0-12.0); NEUTROPHILS # (AUTO) 5.6 K/uL (1.8-8.9); NEUTROPHILS % (AUTO) 70.3 % (43.0-81.0); PLATELET COUNT (AUTO) 224 K/uL (150-450); RED BLOOD CELL COUNT(AUTO) 3.62 MIL/uL (4.0-5.2); RED CELL DISTRIBUTION WIDTH 16.3 % (11.5-15.0)
[2024-01-04] MEDS: methylPREDNISolone SOD SUCC 125 MG/2ML VIAL IV ONE (13:02)
[2024-01-04 13:09] LABS: CALCIUM, SERUM 8.7 mg/dL (8.5-10.1); CARBON DIOXIDE 24 mmol/L (21-32); CHLORIDE 107 mmol/L (98-107); CREATININE 1.3 mg/dL (0.6-1.3); GLUCOSE 143 mg/dL (74-106); POTASSIUM 3.9 mmol/L (3.5-5.1); SODIUM SERUM 140 mmol/L (136-145); UREA NITROGEN, BLOOD 17 mg/dL (7-18)
[2024-01-04] MEDS ORDERED: IPRATROPIUM NEB FS 0.5 MG/2.5 ML AMPUL.NEB ONE (13:19)
[2024-01-04] MEDS ORDERED: ALBUTEROL FS 2.5 MG/3 ML VIAL.NEB ONE (13:19)
[2024-01-04 13:22] LABS: NT-PRO BNP 6513 pg/mL (0-125)
[2024-01-04 13:25] VITALS: O2SAT 93
[2024-01-04] MEDS: ALBUTEROL FS 2.5 MG/3 ML VIAL.NEB CONTNEB ONE (13:25)
[2024-01-04] MEDS: IPRATROPIUM NEB FS 0.5 MG/2.5 ML AMPUL.NEB NEB ONE (13:25)
[2024-01-04] MEDS ORDERED: Z GUARD REMEDY 4 OZ OINT TP PRN (14:30)
[2024-01-04] MEDS ORDERED: IPRATROPIUM NEB FS 0.5 MG/2.5 ML AMPUL.NEB NEB PRN (14:30)
[2024-01-04] MEDS ORDERED: ONDANSETRON HCL/PF 4 MG/2 ML VIAL IVP PRN (14:30)
[2024-01-04] MEDS ORDERED: MAGNESIUM HYDROXIDE 30 ML UDC PO PRN (14:30)
[2024-01-04] MEDS ORDERED: TRAMADOL HCL 50 MG TABLET PO PRN (14:30)
[2024-01-04] MEDS: LEVOFLOXACIN 750 MG /D5W 150ML 150 ML IV ONE (14:33)
[2024-01-04] MEDS ORDERED: ALLO300T2 PO (14:39)
[2024-01-04] MEDS ORDERED: INSU100V10 SQ (14:39)
[2024-01-04] MEDS ORDERED: QUET200T84 PO (14:39)
[2024-01-04] MEDS ORDERED: SITA100T PO (14:39)
[2024-01-04] MEDS ORDERED: LANS30CA56 PO (14:39)
[2024-01-04] MEDS ORDERED: CLON0.1T PO (14:39)
[2024-01-04] MEDS ORDERED: ALBU18HF2 IH (14:39)
[2024-01-04] MEDS ORDERED: HYDR-4077 PO (14:39)
[2024-01-04] MEDS ORDERED: ACET-73 PO (14:39)
[2024-01-04] MEDS: FUROSEMIDE 20 MG/2 ML VIAL IV ONE (15:00)
[2024-01-04] MEDS ORDERED: DEXTROSE 50%-WATER 50 ML DISP.SYRIN IV PRN (15:00)
[2024-01-04 15:19] VITALS: O2SAT 99
[2024-01-04] MEDS ORDERED: PREGABALIN 25 MG CAPSULE PO SCH (17:00)
[2024-01-04] MEDS ORDERED: MAGNESIUM OXIDE 400 MG TABLET PO SCH (17:00)
[2024-01-04] MEDS ORDERED: FUROSEMIDE 40 MG/4 ML VIAL ONE (17:13)
[2024-01-04] MEDS ORDERED: POTASSIUM CHLORIDE 20 MEQ TAB.PRT.SR PO ONE (17:14)
[2024-01-04] MEDS ORDERED: hydrALAZINE HCL 50 MG TABLET ONE (17:14)
[2024-01-04] MEDS: FUROSEMIDE 40 MG/4 ML VIAL IV SCH (17:14)
[2024-01-04] MEDS: POTASSIUM CHLORIDE 20 MEQ TAB.PRT.SR PO SCH (17:15)
[2024-01-04] MEDS: hydrALAZINE HCL 50 MG TABLET PO SCH (17:20)
[2024-01-04] MEDS: CALCIUM CARBONATE (1250) 500 MG TABLET PO SCH (17:45)
[2024-01-04] MEDS: MEMANTINE HCL 5 MG TABLET PO SCH (17:45)
[2024-01-04 18:08] VITALS: BP 165/63; TEMP 98.6; O2SAT 97
[2024-01-04] MEDS: ACETAMINOPHEN 325 MG TABLET PO PRN (18:35)
[2024-01-04 19:13] LABS: ABG BASE EXCESS -2.7 mmol/L; ABG OXYGEN SATURATION 98.5 % (92.0-98.5); ABG PCO2 31.1 mmHg (35.0-45.0); ABG PO2 134.8 mmHg (75.0-100.0); ABG TOTAL HEMOGLOBIN 11.5 G/dL (12.0-16.0); COHb 0.3 % (0.5-1.5); MetHb 0.3 % (0.0-1.5); O2Hb 97.9 % (94.0-97.0); SITE, ABG Right Radial; VENT MODE, BG CONTINUES TREATMENT
[2024-01-04] MEDS ORDERED: ALBUTEROL FS 2.5 MG/0.5 ML VIAL.NEB NEB SCH (19:30)
[2024-01-04] MEDS: ENOXAPARIN SODIUM 30 MG/0.3 ML DISP.SYRIN SQ SCH (19:55)
[2024-01-04 20:00] VITALS: BP 153/55; TEMP 97.8; O2SAT 96
[2024-01-04] MEDS: methylPREDNISolone SOD SUCC 40 MG/ML VIAL IV SCH (20:23)
[2024-01-04 20:27] VITALS: O2SAT 94
[2024-01-04] MEDS: IPRATROPIUM NEB FS 0.5 MG/2.5 ML AMPUL.NEB NEB SCH (20:27)
[2024-01-04] MEDS: ALBUTEROL FS 2.5 MG/3 ML VIAL.NEB NEB SCH (20:27)
[2024-01-04 20:37] VITALS: O2SAT 98; O2SAT 99
[2024-01-04] MEDS: BLOOD SUGAR DIAGNOSTIC 1 EACH STRIP IN SCH (21:20)
[2024-01-04] MEDS: INSULIN REGULAR, HUMAN 100 UNIT/ML 3 ML VIAL SQ PRN (21:23)
[2024-01-04] MEDS: ZOLPIDEM TARTRATE 5 MG TABLET PO PRN (21:24)
[2024-01-05] VITALS (14 sets, daily range): BP systolic 106–141; BP diastolic 57–74; TEMP 97.7–98.4; O2SAT 91–100
[2024-01-05] MEDS: ALBUTEROL FS 2.5 MG/3 ML VIAL.NEB NEB SCH (02:01)
[2024-01-05 07:36] LABS: HEMATOCRIT 32 % (33-45); HEMOGLOBIN 10.5 g/dL (11.5-14.8); LYMPHOCYTES # (AUTO) 0.9 K/uL (0.8-4.8); LYMPHOCYTES % (AUTO) 10.1 % (20.0-44.0); MEAN CORPUSCULAR HEMOGLOBIN 30 PG (26.0-33.0); MEAN CORPUSCULAR HGB CONC 33 g/dl (31.0-36.0); MEAN CORPUSCULAR VOLUME 90 fL (82-100); MONOCYTES # (AUTO) 0.3 K/uL (0.1-1.30); MONOCYTES % (AUTO) 2.9 % (2.0-12.0); NEUTROPHILS # (AUTO) 7.6 K/uL (1.8-8.9); PLATELET COUNT (AUTO) 234 K/uL (150-450); RED BLOOD CELL COUNT(AUTO) 3.51 MIL/uL (4.0-5.2); RED CELL DISTRIBUTION WIDTH 15.7 % (11.5-15.0); WHITE BLOOD COUNT (AUTO) 8.7 K/uL (4.3-11.0)
[2024-01-05 08:07] LABS: CALCIUM, SERUM 9.1 mg/dL (8.5-10.1); CARBON DIOXIDE 26 mmol/L (21-32); CHLORIDE 103 mmol/L (98-107); CREATININE 1.6 mg/dL (0.6-1.3); GLUCOSE 166 mg/dL (74-106); MAGNESIUM 1.8 mg/dL (1.8-2.4); PHOSPHORUS 4.4 mg/dL (2.5-4.9); POTASSIUM 4.2 mmol/L (3.5-5.1); SODIUM SERUM 140 mmol/L (136-145); UREA NITROGEN, BLOOD 22 mg/dL (7-18)
[2024-01-05] MEDS: ASPIRIN EC 81 MG TABLET.DR PO SCH (08:46)
[2024-01-05] MEDS: QUETIAPINE FUMARATE 100 MG TABLET PO SCH (08:46)
[2024-01-05] MEDS: ALLOPURINOL 100 MG TABLET PO SCH (08:46)
[2024-01-05] MEDS: CLOPIDOGREL BISULFATE 75 MG TABLET PO SCH (08:47)
[2024-01-05] MEDS: CITALOPRAM HYDROBROMIDE 20 MG TABLET PO SCH (08:47)
[2024-01-05] MEDS: PANTOPRAZOLE 40 MG TABLET.DR PO SCH (08:47)
[2024-01-05] MEDS: LINAGLIPTIN 5 MG TABLET PO SCH (08:47)
[2024-01-05] MEDS: TOLTERODINE 2 MG CAP.SR PO SCH (08:47)
[2024-01-05] MEDS: CLOTRIMAZOLE 1% 15 GM TUBE TP SCH (08:49)
[2024-01-05 08:53] LABS: CHOLESTEROL 121 mg/dL (<200); HDL CHOLESTEROL 47 mg/dL (40-60); LDL 54 mg/dL (0-99); TRIGLYCERIDES 107 mg/dL (30-150)
[2024-01-05] MEDS ORDERED: Medication Not On Formulary EA (Linaclotide (Linzess) 72 MCG) PO SCH (09:00)
[2024-01-05] MEDS ORDERED: Medication Not On Formulary EA (Lansoprazole 30 MG) PO SCH (09:00)
[2024-01-05] MEDS ORDERED: HYDROCHLOROTHIAZIDE 25 MG TABLET PO SCH (09:00)
[2024-01-05] MEDS ORDERED: hydrALAZINE HCL 50 MG TABLET PO SCH (09:00)
[2024-01-05] MEDS ORDERED: FAMOTIDINE (20 MG) 20 MG TABLET PO SCH (09:00)
[2024-01-05] MEDS: METOPROLOL TARTRATE INJ 5 MG/5 ML AMPUL IVP ONE (11:12)
[2024-01-05] MEDS: LEVOFLOXACIN 500 MG /D5W 100ML 500 MG in PREMIX 1 EA IV SCH (14:17)
[2024-01-05] MEDS: methylPREDNISolone SOD SUCC 40 MG/ML VIAL IV SCH (17:15)
[2024-01-05] MEDS ORDERED: diphenhydrAMINE HCL ELIX 25 MG/10 ML UDC PO PRN (17:30)
[2024-01-05] MEDS ORDERED: BUDESONIDE RESPULE INH 0.5 MG/2 ML AMPUL.NEB NEB SCH (19:30)
[2024-01-06] VITALS (12 sets, daily range): BP systolic 104–150; BP diastolic 44–70; TEMP 98–98.5; O2SAT 93–98
[2024-01-06 06:18] LABS: BASOPHILS % (AUTO) 0.3 % (0.0-2.0); EOSINOPHILS % (AUTO) 0.2 % (0.0-6.0); HEMATOCRIT 31 % (33-45); HEMOGLOBIN 10.5 g/dL (11.5-14.8); LYMPHOCYTES # (AUTO) 1.4 K/uL (0.8-4.8); LYMPHOCYTES % (AUTO) 14.7 % (20.0-44.0); MEAN CORPUSCULAR HEMOGLOBIN 30 PG (26.0-33.0); MEAN CORPUSCULAR HGB CONC 33 g/dl (31.0-36.0); MEAN CORPUSCULAR VOLUME 90 fL (82-100); MONOCYTES % (AUTO) 10.3 % (2.0-12.0); NEUTROPHILS # (AUTO) 6.9 K/uL (1.8-8.9); NEUTROPHILS % (AUTO) 74.5 % (43.0-81.0); PLATELET COUNT (AUTO) 221 K/uL (150-450); WHITE BLOOD COUNT (AUTO) 9.2 K/uL (4.3-11.0)
[2024-01-06 06:52] LABS: CARBON DIOXIDE 28 mmol/L (21-32); CHLORIDE 103 mmol/L (98-107); CREATININE 1.7 mg/dL (0.6-1.3); GLUCOSE 125 mg/dL (74-106); POTASSIUM 3.5 mmol/L (3.5-5.1); SODIUM SERUM 141 mmol/L (136-145); UREA NITROGEN, BLOOD 29 mg/dL (7-18)
[2024-01-06] MEDS: DOXYCYCLINE HYCLATE (100 MG) 100 MG TABLET PO SCH (08:34)
[2024-01-06] MEDS: hydrALAZINE HCL 50 MG TABLET PO SCH (08:35)
[2024-01-06] MEDS: ISOSORBIDE DINITRATE (20MG) 20 MG TABLET PO SCH (08:36)
[2024-01-07] VITALS (55 sets, daily range): BP systolic 73–181; BP diastolic 35–145; TEMP 97.9–98.6; O2SAT 93–100
[2024-01-07 07:11] LABS: BASOPHILS % (AUTO) 0.4 % (0.0-2.0); EOSINOPHILS # (AUTO) 0.1 K/uL (0.0-0.7); EOSINOPHILS % (AUTO) 0.7 % (0.0-6.0); HEMATOCRIT 34 % (33-45); HEMOGLOBIN 11.2 g/dL (11.5-14.8); LYMPHOCYTES # (AUTO) 0.9 K/uL (0.8-4.8); LYMPHOCYTES % (AUTO) 12.3 % (20.0-44.0); MEAN CORPUSCULAR HEMOGLOBIN 30 PG (26.0-33.0); MEAN CORPUSCULAR HGB CONC 33 g/dl (31.0-36.0); MEAN CORPUSCULAR VOLUME 90 fL (82-100); MONOCYTES # (AUTO) 0.8 K/uL (0.1-1.30); NEUTROPHILS # (AUTO) 5.8 K/uL (1.8-8.9); NEUTROPHILS % (AUTO) 75.6 % (43.0-81.0); PLATELET COUNT (AUTO) 229 K/uL (150-450); RED BLOOD CELL COUNT(AUTO) 3.79 MIL/uL (4.0-5.2); WHITE BLOOD COUNT (AUTO) 7.7 K/uL (4.3-11.0)
[2024-01-07 07:40] LABS: CALCIUM, SERUM 9.2 mg/dL (8.5-10.1); CARBON DIOXIDE 27 mmol/L (21-32); CHLORIDE 103 mmol/L (98-107); CREATININE 2.1 mg/dL (0.6-1.3); GLUCOSE 132 mg/dL (74-106); POTASSIUM 3.7 mmol/L (3.5-5.1); SODIUM SERUM 141 mmol/L (136-145); UREA NITROGEN, BLOOD 31 mg/dL (7-18)
[2024-01-07] MEDS: methylPREDNISolone SOD SUCC 40 MG/ML VIAL IV SCH (09:00)
[2024-01-07] MEDS: ERGOCALCIFEROL (VITAMIN D 2) 50,000 UNIT CAPSULE PO SCH (09:00)
[2024-01-07] MEDS ORDERED: IV NS 0.9% 1,000 ML BAG IV PRN (10:00)
[2024-01-07] MEDS: IV NS 0.9% 500 ML BAG IV ONE (10:50)
[2024-01-07] MEDS ORDERED: PHENYLEPHRINE 50 MG in IV NS 0.9% 245 ML IV PRN (11:00)
[2024-01-07] MEDS: CEFEPIME 1 GM in IV D5W 50 ML IV SCH (11:24)
[2024-01-07] MEDS: PHENYLEPHRINE 50 MG in IV NS 0.9% 245 ML IV PRN (12:14)
[2024-01-07] MEDS ORDERED: CEFEPIME 1 GM VIAL IM SCH (21:00)
[2024-01-07] MEDS: IV NS 0.9% 1,000 ML IV PRN (22:12)
[2024-01-08] VITALS (42 sets, daily range): BP systolic 79–188; BP diastolic 49–88; TEMP 97.8–98.6; O2SAT 93–100
[2024-01-08 04:56] LABS: BASOPHILS % (AUTO) 0.6 % (0.0-2.0); EOSINOPHILS # (AUTO) 0.1 K/uL (0.0-0.7); EOSINOPHILS % (AUTO) 1.5 % (0.0-6.0); HEMATOCRIT 33 % (33-45); HEMOGLOBIN 10.7 g/dL (11.5-14.8); LYMPHOCYTES # (AUTO) 0.8 K/uL (0.8-4.8); LYMPHOCYTES % (AUTO) 10.5 % (20.0-44.0); MEAN CORPUSCULAR HEMOGLOBIN 30 PG (26.0-33.0); MEAN CORPUSCULAR HGB CONC 33 g/dl (31.0-36.0); MEAN CORPUSCULAR VOLUME 91 fL (82-100); MONOCYTES # (AUTO) 0.6 K/uL (0.1-1.30); MONOCYTES % (AUTO) 8.5 % (2.0-12.0); NEUTROPHILS # (AUTO) 5.8 K/uL (1.8-8.9); NEUTROPHILS % (AUTO) 78.9 % (43.0-81.0); PLATELET COUNT (AUTO) 201 K/uL (150-450); RED CELL DISTRIBUTION WIDTH 15.7 % (11.5-15.0); WHITE BLOOD COUNT (AUTO) 7.4 K/uL (4.3-11.0)
[2024-01-08] MEDS: CLONIDINE HCL 0.1 MG TABLET PO PRN (05:00)
[2024-01-08 05:17] LABS: CALCIUM, SERUM 8.6 mg/dL (8.5-10.1); CARBON DIOXIDE 27 mmol/L (21-32); CHLORIDE 105 mmol/L (98-107); GLUCOSE 122 mg/dL (74-106); SODIUM SERUM 140 mmol/L (136-145); UREA NITROGEN, BLOOD 32 mg/dL (7-18)
[2024-01-08 15:46] LABS: ABG BASE EXCESS -1.3 mmol/L; ABG OXYGEN SATURATION 99.4 % (92.0-98.5); ABG PCO2 35.2 mmHg (35.0-45.0); ABG PH 7.426 (7.350-7.450); ABG PO2 473.4 mmHg (75.0-100.0); ABG TOTAL HEMOGLOBIN 10.8 G/dL (12.0-16.0); AaDO2 204.4 mmHg; COHb 0.3 % (0.5-1.5); MetHb 0.6 % (0.0-1.5); O2Hb 98.5 % (94.0-97.0); SITE, ABG Right Radial; VENT MODE, BG NON REBREATHER
[2024-01-08] MEDS: DOXYCYCLINE HYCLATE (100 MG) 100 MG TABLET PO SCH (21:31)
[2024-01-09] VITALS (27 sets, daily range): BP systolic 127–177; BP diastolic 57–84; TEMP 97.2–99; O2SAT 92–100
[2024-01-09] MEDS: BENZONATATE 100 MG CAPSULE PO PRN (00:08)
[2024-01-09] MEDS: BENZONATATE 100 MG CAPSULE PO ONE (00:17)
[2024-01-09 04:10] LABS: BASOPHILS % (AUTO) 0.4 % (0.0-2.0); EOSINOPHILS % (AUTO) 0.6 % (0.0-6.0); HEMATOCRIT 31 % (33-45); HEMOGLOBIN 10.1 g/dL (11.5-14.8); LYMPHOCYTES # (AUTO) 1.1 K/uL (0.8-4.8); LYMPHOCYTES % (AUTO) 13.8 % (20.0-44.0); MEAN CORPUSCULAR HEMOGLOBIN 30 PG (26.0-33.0); MEAN CORPUSCULAR HGB CONC 33 g/dl (31.0-36.0); MEAN CORPUSCULAR VOLUME 91 fL (82-100); MONOCYTES # (AUTO) 0.7 K/uL (0.1-1.30); MONOCYTES % (AUTO) 8.5 % (2.0-12.0); NEUTROPHILS # (AUTO) 6.3 K/uL (1.8-8.9); NEUTROPHILS % (AUTO) 76.7 % (43.0-81.0); PLATELET COUNT (AUTO) 183 K/uL (150-450); RED BLOOD CELL COUNT(AUTO) 3.37 MIL/uL (4.0-5.2); RED CELL DISTRIBUTION WIDTH 15.6 % (11.5-15.0); WHITE BLOOD COUNT (AUTO) 8.2 K/uL (4.3-11.0)
[2024-01-09 04:19] LABS: CALCIUM, SERUM 8.4 mg/dL (8.5-10.1); CARBON DIOXIDE 26 mmol/L (21-32); CHLORIDE 107 mmol/L (98-107); CREATININE 1.6 mg/dL (0.6-1.3); GLUCOSE 111 mg/dL (74-106); POTASSIUM 3.6 mmol/L (3.5-5.1); SODIUM SERUM 142 mmol/L (136-145); UREA NITROGEN, BLOOD 28 mg/dL (7-18)
[2024-01-09] MEDS: GLUCERNA SHAKE 237 ML CAN PO SCH (11:50)
[2024-01-10] VITALS (15 sets, daily range): BP systolic 109–164; BP diastolic 59–73; TEMP 97.6–98.3; O2SAT 96–100
[2024-01-10] MEDS: MAG HYDROX/AL HYDROX/SIMETH 30 ML UDC PO PRN (00:48)
[2024-01-10 07:00] LABS: BASOPHILS % (AUTO) 0.3 % (0.0-2.0); EOSINOPHILS # (AUTO) 0.1 K/uL (0.0-0.7); EOSINOPHILS % (AUTO) 0.8 % (0.0-6.0); HEMATOCRIT 31 % (33-45); HEMOGLOBIN 10.2 g/dL (11.5-14.8); LYMPHOCYTES # (AUTO) 1.4 K/uL (0.8-4.8); LYMPHOCYTES % (AUTO) 17.6 % (20.0-44.0); MEAN CORPUSCULAR HEMOGLOBIN 30 PG (26.0-33.0); MEAN CORPUSCULAR HGB CONC 33 g/dl (31.0-36.0); MEAN CORPUSCULAR VOLUME 90 fL (82-100); MONOCYTES # (AUTO) 0.8 K/uL (0.1-1.30); MONOCYTES % (AUTO) 9.6 % (2.0-12.0); NEUTROPHILS # (AUTO) 5.8 K/uL (1.8-8.9); NEUTROPHILS % (AUTO) 71.7 % (43.0-81.0); PLATELET COUNT (AUTO) 185 K/uL (150-450); RED BLOOD CELL COUNT(AUTO) 3.47 MIL/uL (4.0-5.2); RED CELL DISTRIBUTION WIDTH 15.9 % (11.5-15.0)
[2024-01-10 07:03] LABS: CALCIUM, SERUM 8.8 mg/dL (8.5-10.1); CREATININE 1.3 mg/dL (0.6-1.3); POTASSIUM 3.9 mmol/L (3.5-5.1)
[2024-01-10] MEDS: AMLODIPINE BESYLATE 5 MG TABLET PO SCH (09:00)
[2024-01-11] VITALS: BP 177/67; TEMP 98; O2SAT 99
[2024-01-11 04:00] VITALS: BP 158/77; TEMP 97.5; O2SAT 100
[2024-01-11 07:50] VITALS: O2SAT 97
[2024-01-11 08:00] VITALS: BP 135/59; TEMP 98; O2SAT 100
[2024-01-11 08:05] VITALS: O2SAT 100; O2SAT 99
[2024-01-11] MEDS: AMLODIPINE BESYLATE 5 MG TABLET PO SCH (08:13)
[2024-01-11] MEDS ORDERED: AMLO-212 PO (08:22)
[2024-01-11] MEDS ORDERED: DOXY100T2 PO (08:22)
[2024-01-11] MEDS ORDERED: METH4TAB17 PO (08:22)
[2024-01-11 12:00] VITALS: BP 146/75; TEMP 98; O2SAT 92
[2024-01-12] MEDS ORDERED: AMLODIPINE BESYLATE 5 MG TABLET PO SCH (09:00)
[2024-01-12 12:08] LABS: CORTISOL AM 12.9 ug/dL (6.2-19.4)
== END 2024-01-11 13:30 | disposition home or self-care (01) | DRG 193 ==
LOC: ER 12:15 → TELE1 16:38 → ICU 01-07 11:32 → TELE1 01-09 11:48
PROVIDERS: ADMIT Nurse Practitioner Acute Care; ATTEND Internal Medicine
PROC: 05HC33Z Insertion of Infusion Device into Left Basilic Vein, Percutaneous Approach (ICD-10-PCS; principal; 2024-01-07)
PROC: B54NZZA Ultrasonography of Left Upper Extremity Veins, Guidance (ICD-10-PCS; 2024-01-07)
DX: J15.9 Unspecified bacterial pneumonia (principal); I50.33 Acute on chronic diastolic (congestive) heart failure; J96.01 Acute respiratory failure with hypoxia; I13.0 Hypertensive heart and chronic kidney disease with heart failure and stage 1 through stage 4 chronic kidney disease, or unspecified chronic kidney disease; J44.1 Chronic obstructive pulmonary disease with (acute) exacerbation; N17.9 Acute kidney failure, unspecified; J44.0 Chronic obstructive pulmonary disease with (acute) lower respiratory infection; D64.9 Anemia, unspecified; E78.5 Hyperlipidemia, unspecified; E86.0 Dehydration; F17.210 Nicotine dependence, cigarettes, uncomplicated; I25.10 Atherosclerotic heart disease of native coronary artery without angina pectoris; N18.9 Chronic kidney disease, unspecified; Z79.4 Long term (current) use of insulin; Z79.84 Long term (current) use of oral hypoglycemic drugs; Z88.0 Allergy status to penicillin; Z95.5 Presence of coronary angioplasty implant and graft; E11.22 Type 2 diabetes mellitus with diabetic chronic kidney disease; Z28.310 Unvaccinated for COVID-19; Z79.82 Long term (current) use of aspirin; Z96.642 Presence of left artificial hip joint; J20.9 Acute bronchitis, unspecified; I95.2 Hypotension due to drugs
CPT/HCPCS: 36410; 36415; 36600; 71045-TC; 71250-TC; 76770-TC; 80048-TC; 80061-TC; 82533; 82803-TC; 82962-TC; 83735-TC; 83880; 84100-TC; 84244; 84484-TC; 85025-TC; 86480; 87040-TC; 87081-TC; 93970-TC; 94799-TC; 97110-TC; 97116-TC; 97530-TC; A4216; A4223; G0378; J0692; J1650; J1815; J1940; J1956; J2920; J2930; J3490; J7030; J7050; J7060

== ENCOUNTER 2024-12-13 04:27 | Inpatient (IN) | payer MEDICARE, OTHER ==
[~2024-12-13] VITALS: Ht 162.6 cm; Wt 56.7 kg
[2024-12-13] VITALS (15 sets, daily range): BP systolic 101–137; BP diastolic 42–74; TEMP 97.4–98.4; O2SAT 96–100
[~2024-12-13 04:27] MED LIST changes: +ACET-73 PO; +ALBU18HF2 IH; +ALLO300T2 PO; +AMLO-212 PO; -AMLO-62 PO; +CALC500T52 GT; -CALC500T52 PO; +CLON0.1T PO; +DOXY100T2 PO; -FLUT1BLS6 INH; +HYDR-4077 PO; -HYDR100T27 PO; -HYDR25TA4 PO; +INSU100V10 SQ; +LANS30CA56 PO; -LINA72CA PO; -MAGN400T26 PO; +METH4TAB17 PO; -OMEP40CA21 PO; -PREG-58 PO; +QUET200T84 PO; +SITA100T PO; -TRAM50TA2 PO
[2024-12-13] MEDS ORDERED: DILTIAZEM HCL 50 MG IV ONE (04:47)
[2024-12-13] MEDS ORDERED: ACETAMINOPHEN 650 MG/SUPP.RECT RC ONE (04:47)
[2024-12-13 05:00] LABS: BASOPHILS % (AUTO) 0.1 % (0.0-2.0); HEMATOCRIT 25 % (33-45); HEMOGLOBIN 7.7 g/dL (11.5-14.8); LYMPHOCYTES # (AUTO) 5.1 K/uL (0.8-4.8); LYMPHOCYTES % (AUTO) 11.7 % (20.0-44.0); MEAN CORPUSCULAR HEMOGLOBIN 26 PG (26.0-33.0); MEAN CORPUSCULAR HGB CONC 31 g/dl (31.0-36.0); MEAN CORPUSCULAR VOLUME 82 fL (82-100); MONOCYTES # (AUTO) 1.3 K/uL (0.1-1.30); MONOCYTES % (AUTO) 3.1 % (2.0-12.0); NEUTROPHILS # (AUTO) 36.8 K/uL (1.8-8.9); NEUTROPHILS % (AUTO) 85.1 % (43.0-81.0); PLATELET COUNT (AUTO) 652 K/uL (150-450); RED BLOOD CELL COUNT(AUTO) 3.01 MIL/uL (4.0-5.2); RED CELL DISTRIBUTION WIDTH 20.9 % (11.5-15.0)
[2024-12-13] MEDS: IV NS 0.9% 1,000 ML BAG IV ONE ×2 (05:00→06:30)
[2024-12-13] MEDS: ACETAMINOPHEN 650 MG/SUPP.RECT RC ONE (05:00)
[2024-12-13] MEDS: DILTIAZEM HCL 50 MG IV IV ONE (05:00)
[2024-12-13] MEDS ORDERED: DILTIAZEM HCL IV 125 MG in IV NS 0.9% 100 ML IV PRN (05:00)
[2024-12-13 05:05] LABS: WHITE BLOOD COUNT (AUTO) 43.2 K/uL (4.3-11.0)
[2024-12-13 05:06] LABS: CARBON DIOXIDE 31 mmol/L (21-32); CHLORIDE 97 mmol/L (98-107); CREATININE 2.2 mg/dL (0.6-1.3); GLUCOSE 212 mg/dL (74-106); POTASSIUM 3.9 mmol/L (3.5-5.1); SODIUM SERUM 138 mmol/L (136-145)
[2024-12-13 05:09] LABS: UREA NITROGEN, BLOOD 82 mg/dL (7-18)
[2024-12-13 05:14] LABS: INR 1.45 (0.91-1.10); PARTIAL THROMBOPLASTIN TIME 29.9 SEC (24.3-34.3)
[2024-12-13 05:17] LABS: LACTIC ACID 5.2 mmol/L (0.4-2.0)
[2024-12-13 05:18] LABS: ALANINE AMINOTRANSFERASE 27 U/L (12-78); ALKALINE PHOSPHATASE 176 U/L (46-116); ASPARTATE AMINOTRANSFERASE 33 U/L (15-37); BILIRUBIN,DIRECT 0.2 mg/dL (0.0-0.2); BILIRUBIN,TOTAL 0.4 mg/dL (0.2-1.0)
[2024-12-13 05:19] LABS: ALBUMIN 1.4 g/dL (3.4-5.0)
[2024-12-13 05:28] LABS: TOTAL PROTEIN, SERUM 7.6 g/dL (6.4-8.2)
[2024-12-13 06:29] LABS: ABG BASE EXCESS -5.2 mmol/L (-2.0-3.0); ABG OXYGEN SATURATION 98.9 % (94.0-98.0); ABG PCO2 53.2 mmHg (32.0-45.0); ABG PH 7.237 (7.350-7.450); ABG TOTAL HEMOGLOBIN 8.1 G/dL (12.0-16.0); COHb 0.2 % (0.5-1.5); MetHb 0.4 % (0.0-1.5); O2Hb 98.3 % (94.0-97.0); PEEP,BG 5 cm H2O; SITE, ABG Other; VT, ABG 450 mL
[2024-12-13] MEDS: PIPERACILLIN /TAZOBACTAM 3.375 G in IV D5W 50 ML IV ONE (06:30)
[2024-12-13] MEDS ORDERED: VANCOMYCIN 1 GM /D5W 250 ML PB IV ONE (06:31)
[2024-12-13] MEDS ORDERED: PIPERACI/TAZO 3.375GM/D5W 50ML PB IV ONE (06:31)
[2024-12-13 06:37] LABS: ANISOCYTOSIS 1+; BASOPHILS % (MANUAL) 0 % (0.0-2.0); EOSINOPHILS % (MANUAL) 0 % (0-4); HYPOCHROMASIA 1+; LYMPHOCYTES % (MANUAL) 12 % (16-48); MONOCYTES % (MANUAL) 4 % (0-11.0); NEUTROPHILS % (MANUAL) 84 (42-76); PLATELET ESTIMATE INCREASED
[2024-12-13] MEDS: VANCOMYCIN 1 GM in IV D5W 250 ML IV ONE (06:43)
[2024-12-13] MEDS ORDERED: ONDANSETRON HCL/PF 4 MG/2 ML VIAL IVP PRN ×2 (07:00→10:30)
[2024-12-13] MEDS ORDERED: ERGOCALCIFEROL (VITAMIN D 2) 50,000 UNIT CAPSULE PO SCH (07:00)
[2024-12-13] MEDS ORDERED: ACETAMINOPHEN 325 MG TABLET PO PRN ×2 (07:00→10:30)
[2024-12-13] MEDS ORDERED: MORPHINE SULFATE INJ 2 MG/ML DISP.SYRIN IV PRN (07:00)
[2024-12-13] MEDS ORDERED: Z GUARD REMEDY 4 OZ OINT TP PRN ×2 (07:00→10:30)
[2024-12-13] MEDS ORDERED: ALBUTEROL FS 2.5 MG/0.5 ML VIAL.NEB NEB PRN ×2 (07:00→14:00)
[2024-12-13] MEDS ORDERED: methylPREDNISolone SOD SUCC 125 MG/2ML VIAL IV ONE (07:30)
[2024-12-13] MEDS ORDERED: PANTOPRAZOLE 80 MG in IV NS 0.9% 500 ML IV ONE (07:30)
[2024-12-13] MEDS: ALBUTEROL FS 2.5 MG/3 ML VIAL.NEB NEB ONE (08:18)
[2024-12-13] MEDS: IPRATROPIUM NEB FS 0.5 MG/2.5 ML AMPUL.NEB NEB ONE (08:18)
[2024-12-13] MEDS ORDERED: RIFA550T GT (08:36)
[2024-12-13] MEDS ORDERED: METO25TA6 GT (08:36)
[2024-12-13] MEDS ORDERED: CHLO118L3 MM (08:36)
[2024-12-13] MEDS ORDERED: NUT.237L30 GT (08:36)
[2024-12-13] MEDS ORDERED: LEVE100S GT (08:36)
[2024-12-13] MEDS ORDERED: ASCO-352 GT (08:36)
[2024-12-13] MEDS ORDERED: ZINC50TA69 GT (08:36)
[2024-12-13] MEDS ORDERED: ATOR40TA GT (08:36)
[2024-12-13] MEDS ORDERED: ACET650S11 RC (08:36)
[2024-12-13] MEDS ORDERED: FERR220S2 GT (08:36)
[2024-12-13] MEDS ORDERED: BISA10SU11 RC (08:36)
[2024-12-13] MEDS ORDERED: VANC1VIA34 IV (08:36)
[2024-12-13] MEDS ORDERED: PIPE3.3749 IV (08:36)
[2024-12-13] MEDS ORDERED: ACET-2070 GT (08:36)
[2024-12-13] MEDS ORDERED: AMLO5TAB4 GT (08:36)
[2024-12-13] MEDS ORDERED: MIDO2.5T GT (08:36)
[2024-12-13] MEDS ORDERED: INSU100I47 SQ (08:36)
[2024-12-13] MEDS ORDERED: SENN-291 GT (08:36)
[2024-12-13] MEDS ORDERED: AMIN30LI66 GT (08:36)
[2024-12-13] MEDS ORDERED: MODAFINIL GT (08:36)
[2024-12-13] MEDS ORDERED: HEPA500039 SQ (08:36)
[2024-12-13] MEDS ORDERED: MAGN400O6 GT (08:36)
[2024-12-13] MEDS ORDERED: IPRA0.2S49 IH (08:36)
[2024-12-13] MEDS ORDERED: ALBU2.5V38 IH (08:36)
[2024-12-13] MEDS ORDERED: NA P133E RC (08:36)
[2024-12-13] MEDS ORDERED: INSU100V7 SQ (08:36)
[2024-12-13] MEDS ORDERED: EPOE40007 SQ (08:36)
[2024-12-13] MEDS ORDERED: INSU100V42 SQ (08:36)
[2024-12-13] MEDS: ALLOPURINOL 100 MG TABLET PO SCH (09:00)
[2024-12-13] MEDS: CLOPIDOGREL BISULFATE 75 MG TABLET PO SCH (09:00)
[2024-12-13] MEDS: ASPIRIN EC 81 MG TABLET.DR PO SCH (09:00)
[2024-12-13] MEDS: MEMANTINE HCL 5 MG TABLET PO SCH (09:00)
[2024-12-13] MEDS: hydrALAZINE HCL 50 MG TABLET PO SCH (09:00)
[2024-12-13] MEDS: CITALOPRAM HYDROBROMIDE 10 MG TABLET PO SCH (09:00)
[2024-12-13] MEDS ORDERED: QUETIAPINE FUMARATE 200 MG PO SCH (09:00)
[2024-12-13] MEDS: AMLODIPINE BESYLATE 5 MG TABLET PO SCH (09:00)
[2024-12-13] MEDS: LINAGLIPTIN 5 MG TABLET PO SCH (09:00)
[2024-12-13] MEDS: METOPROLOL SUCCINATE 50 MG TAB.SR.24H PO SCH (09:00)
[2024-12-13] MEDS: TOLTERODINE 2 MG CAP.SR PO SCH (10:00)
[2024-12-13] MEDS: INSULIN GLARGINE, 100 UNIT/ML CARTRIDGE SQ SCH (10:00)
[2024-12-13] MEDS: THERAHONEY GEL 1.5 OZ TUBE TP SCH (10:22)
[2024-12-13] MEDS ORDERED: MAG HYDROX/AL HYDROX/SIMETH 30 ML UDC PO PRN (10:30)
[2024-12-13] MEDS ORDERED: MAGNESIUM HYDROXIDE 30 ML UDC PO PRN (10:30)
[2024-12-13] MEDS: IV NS 0.9% 1,000 ML IV PRN (10:32)
[2024-12-13] MEDS: ENOXAPARIN SODIUM 30 MG/0.3 ML DISP.SYRIN SQ SCH (10:46)
[2024-12-13] MEDS ORDERED: CEFEPIME 2 GM in IV D5W 100 ML IV SCH (11:00)
[2024-12-13] MEDS: DAKINS QUARTER STRENGTH (0.125%) 480 ML BOTTLE TOP SCH (11:06)
[2024-12-13] MEDS: ZOSYN IVPB 2.25 G in IV D5W 50ml IV SCH (11:16)
[2024-12-13] MEDS ORDERED: PIPERACILLIN /TAZOBACTAM 4.5 G in IV D5W 50 ML IV SCH (12:00)
[2024-12-13] MEDS: IPRATROPIUM NEB FS 0.5 MG/2.5 ML AMPUL.NEB NEB SCH ×2 (13:30→19:30)
[2024-12-13] MEDS: ALBUTEROL FS 2.5 MG/3 ML VIAL.NEB NEB SCH ×2 (13:30→19:55)
[2024-12-13] MEDS ORDERED: LORAZEPAM INJ 2 MG/ML VIAL IV PRN (15:00)
[2024-12-13] MEDS ORDERED: PHENYLEPHRINE 50 MG in IV NS 0.9% 245 ML IV PRN (15:00)
[2024-12-13 16:28] LABS: ABG BASE EXCESS 3.4 mmol/L (-2.0-3.0); ABG PH 7.474 (7.350-7.450); ABG TOTAL HEMOGLOBIN 6.6 G/dL (12.0-16.0); COHb 0.3 % (0.5-1.5); MetHb 0.5 % (0.0-1.5); O2Hb 97.2 % (94.0-97.0); PEEP,BG 5 cm H2O; SITE, ABG LEFT RADIAL; VT, ABG 475 mL
[2024-12-14] VITALS (19 sets, daily range): BP systolic 82–130; BP diastolic 35–92; TEMP 98.6–99.2; O2SAT 96–100
[2024-12-14 05:30] LABS: ABG BASE EXCESS 3.6 mmol/L (-2.0-3.0); ABG OXYGEN SATURATION 95.1 % (94.0-98.0); ABG PCO2 36.2 mmHg (32.0-45.0); ABG PH 7.493 (7.350-7.450); ABG PO2 80.9 mmHg (83.0-108.0); ABG TOTAL HEMOGLOBIN 6.9 G/dL (12.0-16.0); COHb 0.3 % (0.5-1.5); MetHb 0.4 % (0.0-1.5); O2Hb 94.4 % (94.0-97.0); PEEP,BG 5 cm H2O; SITE, ABG RIGHT RADIAL; VT, ABG 475 mL
[2024-12-14] MEDS: PANTOPRAZOLE 40 MG TABLET.DR PO SCH (09:03)
[2024-12-14 09:12] LABS: EOSINOPHILS # (AUTO) 0.2 K/uL (0.0-0.7); EOSINOPHILS % (AUTO) 0.8 % (0.0-6.0); HEMATOCRIT 21 % (33-45); LYMPHOCYTES % (AUTO) 3.6 % (20.0-44.0); MEAN CORPUSCULAR HEMOGLOBIN 25 PG (26.0-33.0); MEAN CORPUSCULAR HGB CONC 32 g/dl (31.0-36.0); MEAN CORPUSCULAR VOLUME 80 fL (82-100); MONOCYTES # (AUTO) 0.8 K/uL (0.1-1.30); MONOCYTES % (AUTO) 2.7 % (2.0-12.0); NEUTROPHILS # (AUTO) 26.4 K/uL (1.8-8.9); NEUTROPHILS % (AUTO) 92.9 % (43.0-81.0); PLATELET COUNT (AUTO) 345 K/uL (150-450); RED BLOOD CELL COUNT(AUTO) 2.57 MIL/uL (4.0-5.2); RED CELL DISTRIBUTION WIDTH 21.1 % (11.5-15.0); WHITE BLOOD COUNT (AUTO) 28.4 K/uL (4.3-11.0)
[2024-12-14 09:16] LABS: BILIRUBIN,TOTAL 0.4 mg/dL (0.2-1.0); CALCIUM, SERUM 7.4 mg/dL (8.5-10.1); CREATININE 2.5 mg/dL (0.6-1.3); MAGNESIUM 2.2 mg/dL (1.8-2.4); PHOSPHORUS 5.7 mg/dL (2.5-4.9); POTASSIUM 2.9 mmol/L (3.5-5.1); TOTAL PROTEIN, SERUM 5.6 g/dL (6.4-8.2)
[2024-12-14 09:17] LABS: HEMOGLOBIN 6.4 g/dL (11.5-14.8)
[2024-12-14 09:26] LABS: ALBUMIN 0.9 g/dL (3.4-5.0)
[2024-12-14 11:45] LABS: ANISOCYTOSIS 1+; LYMPHOCYTES % (MANUAL) 10 % (16-48); NEUTROPHILS % (MANUAL) 90 (42-76); PLATELET ESTIMATE ADEQUATE
[2024-12-14] MEDS: MORPHINE SULFATE PF DRIP 100 MG in IV D5W 96 ML IV PRN (16:07)
[2024-12-15] MEDS ORDERED: VANCOMYCIN 1 GM in IV D5W 250ml IV SCH (07:00)
[2024-12-15] MEDS ORDERED: VANCOMYCIN 750 MG in IV D5W 250 ML IV SCH (08:00)
[2024-12-15] MEDS ORDERED: HEPARIN SODIUM, PORCINE 5000 UNITS/1 ML VIAL SQ SCH (09:00)
== END 2024-12-14 18:04 | DRG 871 ==
LOC: ER 04:42 → ICU 08:15
PROVIDERS: ADMIT Internal Medicine; ATTEND Internal Medicine
PROC: 5A1945Z Respiratory Ventilation, 24-96 Consecutive Hours (ICD-10-PCS; principal; 2024-12-13)
DX: A41.9 Sepsis, unspecified organism (principal); J69.0 Pneumonitis due to inhalation of food and vomit; Z51.5 Encounter for palliative care; L89.154 Pressure ulcer of sacral region, stage 4; J96.21 Acute and chronic respiratory failure with hypoxia; J96.22 Acute and chronic respiratory failure with hypercapnia; R65.21 Severe sepsis with septic shock; R53.2 Functional quadriplegia; K56.609 Unspecified intestinal obstruction, unspecified as to partial versus complete obstruction; I69.354 Hemiplegia and hemiparesis following cerebral infarction affecting left non-dominant side; J44.0 Chronic obstructive pulmonary disease with (acute) lower respiratory infection; I48.20 Chronic atrial fibrillation, unspecified; K56.7 Ileus, unspecified; G93.49 Other encephalopathy; N17.9 Acute kidney failure, unspecified; Z99.11 Dependence on respirator [ventilator] status; J95.851 Ventilator associated pneumonia; M86.8X7 Other osteomyelitis, ankle and foot; I25.10 Atherosclerotic heart disease of native coronary artery without angina pectoris; E86.0 Dehydration; E78.5 Hyperlipidemia, unspecified; I12.9 Hypertensive chronic kidney disease with stage 1 through stage 4 chronic kidney disease, or unspecified chronic kidney disease; E11.22 Type 2 diabetes mellitus with diabetic chronic kidney disease; E11.621 Type 2 diabetes mellitus with foot ulcer; L97.513 Non-pressure chronic ulcer of other part of right foot with necrosis of muscle; L89.226 Pressure-induced deep tissue damage of left hip; E11.51 Type 2 diabetes mellitus with diabetic peripheral angiopathy without gangrene; E11.69 Type 2 diabetes mellitus with other specified complication; N18.9 Chronic kidney disease, unspecified; Z66 Do not resuscitate; Z93.0 Tracheostomy status; Z93.1 Gastrostomy status; Z95.5 Presence of coronary angioplasty implant and graft; Z79.84 Long term (current) use of oral hypoglycemic drugs; Z79.4 Long term (current) use of insulin; R13.10 Dysphagia, unspecified; Z79.82 Long term (current) use of aspirin; Z20.822 Contact with and (suspected) exposure to COVID-19; J44.89 Other specified chronic obstructive pulmonary disease; D63.8 Anemia in other chronic diseases classified elsewhere; L97.523 Non-pressure chronic ulcer of other part of left foot with necrosis of muscle; Y84.8 Other medical procedures as the cause of abnormal reaction of the patient, or of later complication, without mention of misadventure at the time of the procedure; Y92.129 Unspecified place in nursing home as the place of occurrence of the external cause
CPT/HCPCS: 31720; 36415; 36600; 71045-TC; 74018; 80048-TC; 80053-TC; 80076-TC; 82803-TC; 82962-TC; 83605-TC; 83735-TC; 84100-TC; 84484-TC; 85025-TC; 85730-TC; 86850-TC; 87040-TC; 87081-TC; 93307-TC; 94799-TC; A4223; A6403; G0378; J0692; J1650; J1815; J2274; J2543; J3370; J3371; J3490; J7030; J7050; J7060